=== PATIENT | female | born 1950 | race Caucasian/White ===

== ENCOUNTER 2023-12-12 10:20 | Outpatient (CLI) | payer OTHER | END 2023-12-12 10:22 | disposition home or self-care (01) | LOC: SONOGRAMA 10:20 | PROVIDERS: ATTEND Pathology Anatomic Pathology & Clinical Pathology | DX: D34 Benign neoplasm of thyroid gland (principal); E07.89 Other specified disorders of thyroid; E04.2 Nontoxic multinodular goiter ==

== ENCOUNTER 2025-02-19 10:00 | Day surgery (SDC) | payer OTHER ==
[2025-02-12 12:50] VITALS: BP 130/81
[~2025-02-19] VITALS: Ht 160 cm; Wt 62.6 kg
[~2025-02-19 10:00] MED LIST: CEFAZOLIN SODIUM 1,000 MG VIAL IV ONE; CHLORHEXIDINE GLUCONATE 120 ML BOTTLE TOP ONE; EZALLOR SPRINKL20 MG PO; FLEXGEN TABLET1 EAC1; GENTAMICIN SULFATE 40 MG/ML VIAL IR ONE; LIDOCAINE HCL 1%/EPINEPHRINE 20ML VIAL IJ ONE; LOSARTAN-HCTZ1 EAC1 PO; METFORMIN HCL500 M3 PO; TENORMIN100 M1 PO
[2025-02-19] MEDS ORDERED: TRAM1TAB98 PO (10:16)
[2025-02-19] MEDS ORDERED: MACROBID 100 M100 MG PO (10:16)
== END 2025-02-19 13:50 | disposition home or self-care (01) ==
LOC: CIR.AMB 10:00
PROVIDERS: ATTEND Obstetrics & Gynecology Gynecology
DX: N81.11 Cystocele, midline (principal)